=== PATIENT | female | born 1965 | race Caucasian/White ===

== ENCOUNTER 2020-05-16 11:10 | Emergency (ER) | payer MEDICAID ==
[~2020-05-16] VITALS: Ht 152.4 cm; Wt 61.2 kg
[2020-05-16 11:11] VITALS: BP 123/74; Ht 152.4 cm; Wt 61.2 kg
== END 2020-05-16 12:00 | disposition home or self-care (01) ==
LOC: ED 11:10
DX: G44.209 Tension-type headache, unspecified, not intractable (principal); I10 Essential (primary) hypertension; Z98.890 Other specified postprocedural states; Z90.49 Acquired absence of other specified parts of digestive tract
CPT/HCPCS: J1885; J2765